=== PATIENT | female | born 1945 | race Caucasian/White ===

== ENCOUNTER 2023-01-05 15:21 | Outpatient (REF) | payer MEDICARE, SELFPAY | END 2023-01-05 15:22 | disposition home or self-care (01) | LOC: HO.HMGCLDS 15:21 | PROVIDERS: PCP Internal Medicine; Visit Provider Internal Medicine | DX: E03.9 Hypothyroidism, unspecified (principal); I11.0 Hypertensive heart disease with heart failure; I50.9 Heart failure, unspecified; E11.9 Type 2 diabetes mellitus without complications | CPT/HCPCS: 36415; 80053; 83036; 83880; 84443; 85025 ==